=== PATIENT | female | born 1985 | race Caucasian/White ===

== ENCOUNTER 2019-02-26 07:09 | Inpatient (IN) | payer OTHER ==
[2019-02-26] MEDS ORDERED: Ondansetron 4 MG/2 ML SDV IVPUSH PRN ×2 (08:36→10:37)
[2019-02-26] MEDS ORDERED: Nalbuphine 20 MG/ML 1 ML Syringe IVPUSH PRN (08:36)
[2019-02-26] MEDS ORDERED: Sodium Chloride 0.9% 10 ML Syringe FLUSH PRN (08:36)
[2019-02-26] MEDS ORDERED: Oxytocin/Lactated Ringers 10 UNIT/1,000 ML BAG IV SCH ×2 (08:45)
[2019-02-26] MEDS ORDERED: diphenhydrAMINE 50 MG/ML SDV IVPUSH PRN (10:37)
[2019-02-26] MEDS ORDERED: ePHEDrine 50 MG/ML SDV IVPUSH PRN (10:37)
[2019-02-26] MEDS ORDERED: fentaNYL 100 MCG/2 ML SDV EPIDUR PRN (10:37)
--- NOTE | 2019-02-26 10:41 | PCM.PREANE ---
Preanesthetic Assessment - Anesthesia/Transfusion/Family Hx Anesthesia History: Prior Anesthesia Without Reaction Family History of Anesthesia Reaction: No - Review of Systems General: No Symptoms Pulmonary: No Symptoms Cardiovascular: No Symptoms Gastrointestinal: Other (Occasional heart burn) Neurological: No Symptoms Other: Reports: None - Physical Assessment Height: 1.68 m Weight: 69.4 kg ASA Class: 2 Mental Status: Alert & Oriented x3 Airway Class: Mallampati = 1 Dentition: Reports: Normal Dentition Thyro-Mental Finger Breadths: 3 Mouth Opening Finger Breadths: 3 ROM/Head Extension: Full Lungs: Clear to Auscultation, Normal Respiratory Effort Cardiovascular: Regular Rate, Regular Rhythm - Lab Values: Laboratory Last Values WBC 11.82 K/mm3 (3.98-10.04) H 02/26/19 08:50 RBC 4.46 M/mm3 (3.98-5.22) 02/26/19 08:50 Hgb 13.3 gm/L (11.2-15.7) 02/26/19 08:50 Hct 40.0 % (34.1-44.9) 02/26/19 08:50 MCV 89.7 fl (79.4-94.8) 02/26/19 08:50 MCH 29.8 pg (25.6-32.2) 02/26/19 08:50 MCHC 33.3 g/dl (32.2-35.5) 02/26/19 08:50 RDW Std Deviation 40.7 fL (36.4-46.3) 02/26/19 08:50 Plt Count 257 K/mm3 (182-369) 02/26/19 08:50 MPV 10.1 fl (9.4-12.3) 02/26/19 08:50 Neut % (Auto) 78.2 % (34.0-71.1) H 02/26/19 08:50 Lymph % (Auto) 11.5 % (19.3-51.7) L 02/26/19 08:50 Gates % (Auto) 8.3 % (4.7-12.5) 02/26/19 08:50 Eos % (Auto) 0.7 (0.7-5.8) 02/26/19 08:50 Baso % (Auto) 0.3 % (0.1-1.2) 02/26/19 08:50 Neut # (Auto) 9.24 K/mm3 (1.56-6.13) H 02/26/19 08:50 Lymph # (Auto) 1.36 K/mm3 (1.18-3.74) 02/26/19 08:50 Gates # (Auto) 0.98 K/mm3 (0.24-0.36) H 02/26/19 08:50 Eos # (Auto) 0.08 K/mm3 (0.04-0.36) 02/26/19 08:50 Baso # (Auto) 0.04 K/mm3 (0.01-0.08) 02/26/19 08:50 Manual Slide Review Normal smear 02/26/19 08:50 - Allergies Allergies/Adverse Reactions: Allergies Allergy/AdvReac Type Severity Reaction Status Date / Time No Known Allergies Allergy Verified 02/26/19 08:36 - Acknowledgements Anesthesia Type Planned: Epidural Pt an Appropriate Candidate for the Planned Anesthesia: Yes Alternatives and Risks of Anesthesia Discussed w Pt/Guardian: Yes Pt/Guardian Understands and Agrees with Anesthesia Plan: Yes PreAnesthesia Questionnaire - Past Health History Medical/Surgical History: Denies Medical/Surgical History [employer] History: Reports: - Past Surgical History HEENT Surgical History: Reports: Oral Surgery - CURRENT (IN HOUSE) MEDS Current Meds: Current Medications Diphenhydramine HCl (Benadryl) 25 mg IVPUSH Q6H PRN PRN Reason: Pruritis Ephedrine Sulfate (Ephedrine Sulfate) 5 mg IVPUSH ASDIRECTED PRN PRN Reason: Hypotension Fentanyl (Sublimaze) 100 mcg EPIDUR ONETIME PRN PRN Reason: Pain Lactated Ringer's (Ringers, Lactated) 1,000 mls @ 100 mls/hr IV ASDIRECTED TYRONE Oxytocin/Lactated Ringer's (Pitocin In Lr 10 Units/1,000 Ml) 10 unit in 1,000 mls @ 12 mls/hr IV TITRATE TYRONE; Protocol Oxytocin/Lactated Ringer's (Pitocin In Lr 10 Units/1,000 Ml) 10 unit in 1,000 mls @ 100 mls/hr IV .CONTINUOUS TYRONE; Protocol Nalbuphine HCl (Nubain) 10 mg IVPUSH Q2H PRN PRN Reason: pain Ondansetron HCl (Zofran) 4 mg IVPUSH Q4H PRN PRN Reason: Nausea/Vomiting Ondansetron HCl (Zofran) 4 mg IVPUSH ONETIME PRN PRN Reason: Nausea/Vomiting Sodium Chloride (Saline Flush) 10 ml FLUSH ASDIRECTED PRN PRN Reason: Keep Vein Open
[2019-02-26] MEDS: Lactated Ringers 1,000 ML IV SCH ×2 (11:13→13:44)
[2019-02-26] MEDS ORDERED: Lidocaine 1.5% with EPINEPHrine 1:200,000 5 ML Amp ONE (12:00)
[2019-02-26] MEDS ORDERED: Bupivacaine 0.25% 10 ML SDV ONE (12:00)
[2019-02-26] MEDS ORDERED: fentaNYL/Bupivacaine-NS 2 MCG/ML-0.125%/PF 100 ML Bag EPIDUR ONE (12:56)
--- NOTE | 2019-02-26 15:28 | PCM.LDHP ---
L&D History of Present Illness - General Date of Service: 02/26/19 Admit Problem/Dx: Patient Status Order with Admit Dx/Problem 02/26/19 08:36 Patient Status [ADT] Routine Admission Diagnosis/Problem Admission Diagnosis/Problem Source of Information: Patient History Limitations: Reports: No Limitations - History of Present Illness Introduction:: 33 year old at 39w5d here for induction of labor. 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: - Past Surgical History HEENT Surgical History: Reports: Oral Surgery Social & Family History - Family History Family Medical History: Noncontributory - Tobacco Use Smoking Status *Q: Never Smoker Second Hand Smoke Exposure: No - Caffeine Use Caffeine Use: Reports: None - Recreational Drug Use Recreational Drug Use: No H&P Review of Systems - Review of Systems: Review Of Systems: See Below General: Reports: No Symptoms HEENT: Reports: No Symptoms Pulmonary: Reports: No Symptoms Cardiovascular: Reports: No Symptoms Gastrointestinal: Reports: No Symptoms Genitourinary: Reports: No Symptoms Musculoskeletal: Reports: No Symptoms Skin: Reports: No Symptoms Psychiatric: Reports: No Symptoms Neurological: Reports: No Symptoms Hematologic/Lymphatic: Reports: No Symptoms Immunologic: Reports: No Symptoms L&D Exam - Exam Exam: See Below - Vital Signs Vital Signs: Last Vital Signs Temp 37.2 C 02/26/19 07:43 Pulse 79 02/26/19 07:43 Resp 14 02/26/19 07:43 BP 112/73 02/26/19 07:43 Pulse Ox 98 02/26/19 07:43 Weight: 69.4 kg - OB Specific Contraction Intensity: Irritability Movement: Active Heart Tones: Present Heart Rate (FHR) Variability: Moderate (6-25 bmp) Presentation: Vertex - Fontana Score Fontana Score Cervix Position: Anterior Fontana Score Consistency: Soft Fontana Score Effacement: 51-70% Fontana Score Dilation: 3-4 cm Fontana Score Infant's Station: -2 Fontana Score Total: 9 - Exam General: Alert, Oriented HEENT: PERRLA, Conjunctiva Clear, EACs Clear, EOMI, Hearing Intact, Mucosa Moist & [place], Nares Patent, Normal Nasal Septum, Posterior Pharynx Clear, TMs Clear Neck: Supple, Trachea Midline Lungs: Clear to Auscultation, Normal Respiratory Effort Cardiovascular: Regular Rate, Regular Rhythm GI/Abdominal Exam: Normal Bowel Sounds, Soft, Non-Tender, No Organomegaly, No Distention, No Abnormal Bruit, No Mass, Pelvis Stable Rectal Exam: Normal Exam, Normal Rectal Tone Back Exam: Normal Inspection, Full Range of Motion Extremities: Normal Inspection, Normal Range of Motion, Non-Tender, No Pedal Edema, Normal Capillary Refill Skin: Warm, Dry, Intact Neurological: Cranial Nerves Intact, Reflexes Equal Bilateral Psychiatric: Alert, Normal Affect, Normal Mood - Patient Data Lab Results Last 24 hrs: Laboratory Results - last 24 hr 02/26/19 Range/Units 08:50 WBC 11.82 H (3.98-10.04) K/mm3 RBC 4.46 (3.98-5.22) M/mm3 Hgb 13.3 (11.2-15.7) gm/L Hct 40.0 (34.1-44.9) % MCV 89.7 (79.4-94.8) fl MCH 29.8 (25.6-32.2) pg MCHC 33.3 (32.2-35.5) g/dl RDW Std Deviation 40.7 (36.4-46.3) fL Plt Count 257 (182-369) K/mm3 MPV 10.1 (9.4-12.3) fl Neut % (Auto) 78.2 H (34.0-71.1) % Lymph % (Auto) 11.5 L (19.3-51.7) % Irion % (Auto) 8.3 (4.7-12.5) % Eos % (Auto) 0.7 (0.7-5.8) Baso % (Auto) 0.3 (0.1-1.2) % Neut # (Auto) 9.24 H (1.56-6.13) K/mm3 Lymph # (Auto) 1.36 (1.18-3.74) K/mm3 [place]ion # (Auto) 0.98 H (0.24-0.36) K/mm3 Eos # (Auto) 0.08 (0.04-0.36) K/mm3 Baso # (Auto) 0.04 (0.01-0.08) K/mm3 Manual Slide Review Normal smear Result Diagrams: 02/26/19 08:50 Problem List Initiated/Reviewed/Updated: Yes Orders Last 24hrs: Active Orders 24 hr Category Date Time Status Patient Status [ADT] Routine ADT 02/26/19 08:36 Active Activity as Tolerated [RC] PFP Care 02/26/19 08:36 Active Communication Order [RC] ASDIRECTED Care 02/26/19 08:36 Active Notify Provider [RC] ASDIRECTED Care 02/26/19 10:37 Active Notify Provider [RC] PFP Care 02/26/19 08:36 Active Notify Provider [RC] PRN Care 02/26/19 08:36 Active Peripheral IV Care [RC] . DIRECTED Care 02/26/19 08:38 Active Urinary Catheter Assessment [RC] ASDIRECTED Care 02/26/19 08:36 Active Vital Signs [RC] PER UNIT ROUTINE Care 02/26/19 08:36 Active Regular Diet [DIET] Diet 02/26/19 Lunch Active RAPID PLASMA REAGIN,RPR [CHEM] Routine Lab 02/26/19 08:50 Received Lactated Ringers [Ringers, Lactated] 1,000 ml Med 02/26/19 08:45 Active IV ASDIRECTED Nalbuphine [Nubain] Med 02/26/19 08:36 Active 10 mg IVPUSH Q2H PRN Ondansetron [Zofran] Med 02/26/19 10:37 Active 4 mg IVPUSH ONETIME PRN Ondansetron [Zofran] Med 02/26/19 08:36 Active 4 mg IVPUSH Q4H PRN Oxytocin/Lactated Ringers [Pitocin in LR 10 Units/1,000 Med 02/26/19 08:45 Active ML] 10 unit in 1,000 ml IV .CONTINUOUS Oxytocin/Lactated Ringers [Pitocin in LR 10 Units/1,000 Med 02/26/19 08:45 Active ML] 10 unit in 1,000 ml IV TITRATE Sodium Chloride 0.9% [Saline Flush] Med 02/26/19 08:36 Active 10 ml FLUSH ASDIRECTED PRN diphenhydrAMINE [Benadryl] Med 02/26/19 10:37 Active 25 mg IVPUSH Q6H PRN ePHEDrine [ePHEDrine sulfate] Med 02/26/19 10:37 Active 5 mg IVPUSH ASDIRECTED PRN fentaNYL [Sublimaze] Med 02/26/19 10:37 Active 100 mcg EPIDUR ONETIME PRN Electronic Heart Tones Ext w TOCO [WOMSER] Oth 02/26/19 08:36 Ordered Routine Electronic Heart Tones Internal [WOMSER] Per Unit Oth 02/26/19 08:36 Ordered Routine Peripheral IV Insertion Adult [OM.PC] Routine Oth 02/26/19 08:36 Ordered Resuscitation Status Routine Resus Stat 02/26/19 08:36 Ordered Medication Orders Diphenhydramine HCl (Benadryl) 25 mg IVPUSH Q6H PRN PRN Reason: Pruritis Ephedrine Sulfate (Ephedrine Sulfate) 5 mg IVPUSH ASDIRECTED PRN PRN Reason: Hypotension Fentanyl (Sublimaze) 100 mcg EPIDUR ONETIME PRN PRN Reason: Pain Last Admin: 02/26/19 13:36 Dose: 100 mcg Lactated Ringer's (Ringers, Lactated) 1,000 mls @ 100 mls/hr IV ASDIRECTED TYRONE Last Admin: 02/26/19 13:44 Dose: 100 mls/hr Infusion: 02/26/19 13:44 Dose: 100 mls/hr Admin: 02/26/19 11:13 Dose: 100 mls/hr Oxytocin/Lactated Ringer's (Pitocin In Lr 10 Units/1,000 Ml) 10 unit in 1,000 mls @ 12 mls/hr IV TITRATE TYRONE; Protocol Last Admin: 02/26/19 11:14 Dose: 2 munits/min, 12 mls/hr Oxytocin/Lactated Ringer's (Pitocin In Lr 10 Units/1,000 Ml) 10 unit in 1,000 mls @ 100 mls/hr IV .CONTINUOUS TYRONE; Protocol Nalbuphine HCl (Nubain) 10 mg IVPUSH Q2H PRN PRN Reason: pain Ondansetron HCl (Zofran) 4 mg IVPUSH Q4H PRN PRN Reason: Nausea/Vomiting Ondansetron HCl (Zofran) 4 mg IVPUSH ONETIME PRN PRN Reason: Nausea/Vomiting Sodium Chloride (Saline Flush) 10 ml FLUSH ASDIRECTED PRN PRN Reason: Keep Vein Open Assessment/Plan Comment:: Term induction. Pitocin and AROM. Anticipate
--- NOTE | 2019-02-26 15:36 | PCM.SN ---
- Free Text/Narrative Note: Stage I - Pt presented for induction. Pitocin and AROm. Progressed to complete with overall reassuring FHT. Stage II - of viable female weight 3790g. APGARS 8/9 at 1513. Head delivered in controlled manner over intact perineum. Body and shoulders atraumatically. To maternal abdomen. Cord clamped and cut. Stage III - of intact placenta. 3vc. No laceration. EBL 300.
[2019-02-26] MEDS ORDERED: Witch Hazel Medicated Pads 40/Jar TOP PRN (15:55)
[2019-02-26] MEDS ORDERED: Benzocaine/Menthol 20%-0.5% Spray 56 GM Canister TOP PRN (15:55)
[2019-02-26] MEDS ORDERED: Docusate Sodium 100 MG Cap PO PRN (15:55)
[2019-02-26] MEDS ORDERED: Lanolin 100% Cream 7 GM Tube TOP PRN (15:55)
[2019-02-27] MEDS: Ibuprofen 600 MG Tab PO PRN ×2 (03:09→08:58)
--- NOTE | 2019-02-27 07:36 | PCM48HPAN ---
Post Anesthesia Note - EVALUATION WITHIN 48HRS OF ANESTHETIC Vital Signs in Normal Range: Yes Patient Participated in Evaluation: Yes Respiratory Function Stable: Yes Airway Patent: Yes Cardiovascular Function Stable: Yes Hydration Status Stable: Yes Pain Control Satisfactory: Yes Nausea and Vomiting Control Satisfactory: Yes Mental Status Recovered: Yes (no complaints) Pulse Rate: 66 Resp Rate: 15 Temperature: 98.8 F Blood Pressure: 98/59
--- NOTE | 2019-02-27 10:32 | PCM.DCSUM1 ---
Discharge Summary - Hospital Course Diagnosis: Stroke: No - Discharge Data Discharge Date: 02/27/19 Discharge Disposition: Home, Self-Care 01 Condition: Good - Patient Summary/Data Hospital Course: unremarkable labor delivery and - Patient Instructions Diet: Regular Diet as Tolerated Activity: No Strenuous Activities Driving: May Drive Today Showering/Bathing: May Shower Wound/Incision Care: Keep Operative Site/Wound Site Clean and Dry Notify Provider of: Fever, Increased Pain, Swelling and Redness, Drainage, Nausea and/or Vomiting - Discharge Plan *PRESCRIPTION DRUG MONITORING PROGRAM REVIEWED*: No *COPY OF PRESCRIPTION DRUG MONITORING REPORT IN PATIENT BAUTISTA: No Home Medications: Home Meds PNV95/Ferrous Fumarate/FA [ Tablet] 1 tab PO DAILY 02/26/19 [History] Referrals: Prachi Hudson MD [Primary Care Provider] - - Discharge Summary/Plan Comment DC Time >30 min.: Yes - Patient Data Vitals - Most Recent: Last Vital Signs Temp 37.1 C 02/27/19 07:36 Pulse 66 02/27/19 07:36 Resp 15 02/27/19 07:36 BP 98/59 L 02/27/19 07:36 Pulse Ox 98 02/26/19 07:43 Weight - Most Recent: 69.4 kg I&O - Last 24 hours: Intake & Output 02/26/19 02/27/19 02/27/19 22:59 06:59 14:59 Intake Total 1000 180 Balance 1000 180 Lab Results - Last 24 hrs: Laboratory Results - last 24 hr 02/26/19 02/27/19 Range/Units 08:50 06:35 RPR Non-reactive (NONREACTIVE) Blood Type O NEGATIVE Gel Antibody Screen Positive Screen 0 ros/5 flds - neg RhIG Candidate? Yes Rhogam Indicated Yes, baby rh pos H Med Orders - Current: Current Medications Benzocaine/Menthol (Dermoplast Pain Relief [place]) 0 gm TOP ASDIRECTED PRN PRN Reason: Perineal Comfort Measure Last Admin: 02/26/19 17:43 Dose: 1 can Docusate Sodium (Colace) 100 mg PO BID PRN PRN Reason: Constipation Emollient Ointment (Lansinoh Hpa) 0 gm TOP ASDIRECTED PRN PRN Reason: Sore Nipples Ibuprofen (Motrin) 600 mg PO Q6H PRN PRN Reason: Mild pain or fever Last Admin: 02/27/19 08:58 Dose: 600 mg Witch Juanita (Tucks) 1 pad TOP ASDIRECTED PRN PRN Reason: Pain (moderate 4-6) Last Admin: 02/26/19 17:43 Dose: 1 tub Discontinued Medications Diphenhydramine HCl (Benadryl) 25 mg IVPUSH Q6H PRN PRN Reason: Pruritis Ephedrine Sulfate (Ephedrine Sulfate) 5 mg IVPUSH ASDIRECTED PRN PRN Reason: Hypotension Fentanyl (Sublimaze) 100 mcg EPIDUR ONETIME PRN PRN Reason: Pain Last Admin: 02/26/19 13:36 Dose: 100 mcg Fentanyl/Bupivacaine HCl ([id number]-[id number]-Xg 2 Mcg/Ml-0.125%) 100 ml EPIDUR ONETIME ONE Stop: 02/26/19 12:57 Last Admin: 02/26/19 13:36 Dose: 100 ml Lactated Ringer's (Ringers, Lactated) 1,000 mls @ 100 mls/hr IV ASDIRECTED TYRONE Last Admin: 02/26/19 13:44 Dose: 100 mls/hr Oxytocin/Lactated Ringer's (Pitocin In Lr 10 Units/1,000 Ml) 10 unit in 1,000 mls @ 12 mls/hr IV TITRATE TYRONE; Protocol Last Titration: 02/26/19 15:15 Dose: 500 mls/hr Oxytocin/Lactated Ringer's (Pitocin In Lr 10 Units/1,000 Ml) 10 unit in 1,000 mls @ 100 mls/hr IV .CONTINUOUS TYRONE; Protocol Nalbuphine HCl (Nubain) 10 mg IVPUSH Q2H PRN PRN Reason: pain Ondansetron HCl (Zofran) 4 mg IVPUSH Q4H PRN PRN Reason: Nausea/Vomiting Ondansetron HCl (Zofran) 4 mg IVPUSH ONETIME PRN PRN Reason: Nausea/Vomiting Sodium Chloride (Saline Flush) 10 ml FLUSH ASDIRECTED PRN PRN Reason: Keep Vein Open
[2019-02-27 18:05] VITALS: BP 103/72
== END 2019-02-27 17:25 | disposition home or self-care (01) | DRG 807 ==
LOC: JD.OB 07:09 → OBSVTOIN 15:13 → JD.OB 15:13
PROVIDERS: ADMIT Obstetrics & Gynecology; ATTEND Obstetrics & Gynecology
PROC: 10E0XZZ Delivery of Products of Conception, External Approach (ICD-10-PCS; principal; 2019-02-26)
PROC: 3E0R3BZ Introduction of Anesthetic Agent into Spinal Canal, Percutaneous Approach (ICD-10-PCS; 2019-02-26)
PROC: 3E033VJ Introduction of Other Hormone into Peripheral Vein, Percutaneous Approach (ICD-10-PCS; 2019-02-26)
PROC: 10907ZC Drainage of Amniotic Fluid, Therapeutic from Products of Conception, Via Natural or Artificial Opening (ICD-10-PCS; 2019-02-26)
DX: O80 Encounter for full-term uncomplicated delivery (principal); Z37.0 Single live birth; Z3A.39 39 weeks gestation of pregnancy
CPT/HCPCS: 01967; 36415; 51701; 59025; 59409; 85025; 86592; A9270-GY; J2590; J2790; J3010; J3490; J7120